=== PATIENT | female | born 1975 | race African-American/Black ===

== ENCOUNTER 2019-05-12 11:25 | Emergency (ER) | payer SELFPAY ==
[~2019-05-12] VITALS: Ht 172.7 cm; Wt 117.9 kg
[2019-05-12 11:41] VITALS: BP 136/104
[2019-05-12] MEDS ORDERED: NAPROXEN 500 MG TABLET PO STA (11:42)
[2019-05-12] MEDS ORDERED: LIDOCAINE 1%/EPI 1:100,000 20 ML VIAL. SQ ONE (11:45)
[2019-05-12] MEDS ORDERED: CLIN150C14 PO (12:13)
[2019-05-12] MEDS ORDERED: HYDR-2761 PO (12:13)
--- NOTE | 2019-05-12 12:13 | PHYS DOC ---
Past Medical History Past Medical History: No Pertinent History Past Surgical History: Other Additional Past Surgical Histo: R arm surgery d/t "boils" Alcohol Use: Occasionally Drug Use: Marijuana Adult General Chief Complaint Chief Complaint: ABSCESS HPI HPI Patient is a 43 year old AA female who presents to the emergency department with complaints of right upper inner arm, redness, warmth, and abscess for the last 5 days. Patient states the symptoms gradually gotten worse. She denies any drainage from the site. Patient denies any numbness, tingling, or weakness of the affected extremity. She also denies any fever, cough, shortness of breath, abdominal pain, nausea, vomiting, diarrhea, sore throat, runny nose, or nasal congestion. Currently the patient rates her pain a 10 out of 10 on the pain scale she denies any alleviating factors. The pain increases of the area is touched or she moves her upper arm. All other ROS is neg unless otherwise noted in HPI. Review of Systems Review of Systems See Above Current Medications Current Medications Current Medications Medications (Trade) Dose Ordered Sig/Afsaneh Start Time Stop Time Status Last Admin Dose Admin Lidocaine/ Epinephrine (LIDOCAINE 1%-EPI 1:100,000 Multi-Dose) 20 ml 1X ONCE 05/12/19 11:45 05/12/19 11:46 DC 05/12/19 11:59 20 ML Naproxen (Naprosyn) 500 mg 1X STAT 05/12/19 11:42 05/12/19 11:43 DC 05/12/19 11:59 500 MG Allergies Allergies Allergies Coded Allergies Type Severity Reaction Last Updated Verified No Known Drug Allergies 09/21/13 No Physical Exam Physical Exam See Above Constitutional: Well developed, well nourished, no acute distress, non-toxic appearance, obese. [] HENT: Normocephalic, atraumatic, bilateral external ears normal, oropharynx moist, no oral exudates, nose normal. [] Eyes: PERRLA, EOMI, conjunctiva normal, no discharge. [] Neck: Normal range of motion, no stridor. [] Lungs & Thorax: Respirations even and unlabored, no retractions, no respiratory distress Skin: Warm, dry; indurated, erythematous, tender area with stroll consistent with abscess noted to medial right bicep Back: No tenderness Extremities: No cyanosis, no clubbing, ROM intact Neurologic: Alert and oriented X 3, normal motor function, normal sensory function, no focal deficits noted. [] Psychologic: Affect normal, judgement normal, mood normal. [] Current Patient Data Vital Signs Vital Signs Date Time Temp Pulse Resp B/P (MAP) Pulse Ox O2 Delivery O2 Flow Rate FiO2 05/12/19 11:41 99.0 89 20 136/104 (115) 100 Room Air 99.0 EKG EKG [] Course & Med Decision Making Course & Med Decision Making Pertinent Labs and Imaging studies reviewed. (See chart for details) dx: Cutaneous abscess with surrounding cellulitis of right upper arm Prescription written for clindamycin and hydrocodone 5/325 mg #4. The abscess was incised and drained as documented under procedures. Patient was instructed to return to the emergency room in 2 days to have the site rechecked and the packing removed. Fill the prescriptions and use them as directed. Patient verbalized an understanding of home care, medications, follow-up, and return to ED instructions and was in agreement with the plan of care. [] Dragon Disclaimer Dragon Disclaimer This electronic medical record was generated, in whole or in part, using a voice recognition dictation system. Departure Departure Impression: Primary Impression: Abscess of right upper extremity Disposition: 01 HOME, SELF-CARE Condition: STABLE Referrals: NO PCP (PCP) Patient Instructions: Abscess, Care After, Abscess, [id number] Additional Instructions: Fill the prescription(s) and use as directed. You may take ibuprofen as needed for pain. Leave the Dressing that was placed in the ER in place for the next 24 hours, then change the dressing twice daily and apply antibiotic ointment as needed. You may apply warm, moist packs to the area to help decrease discomfort. Follow up with your primary care doctor or return to the ER in 48 hours to have wound rechecked. Return to the ER sooner if your symptoms worsen or you develop a fever. Scripts Hydrocodone Bit/Acetaminophen (HYDROCODONE-APAP 5-325 ) 1 Tab Tablet 1 TAB PO PRN Q6HRS PRN for PAIN for 1 Day, #4 TAB 0 Refills Prov: DEBBIE WRAY APRN 05/12/19 Clindamycin Hcl (CLINDAMYCIN HCL) 150 Mg Capsule 450 MG PO TID for 7 Days, #63 CAP 0 Refills Prov: DEBBIE WRAY OFFSET PRESS OPERATOR HELPER 05/12/19 Incision and Drainage Incision and Drainage : Site: right upper arm Blade Size: 11 I & D Procedure: gauze wick placed (1/2" iodoform gauze) Progress The affected site was cleansed with alcohol, 1% lidocaine with epi was injected and an 11 blade scalped was used to incise over the apex of the abscess. A moderate amount of bloody pus was expressed, the site was then explored with good forceps and then packed with iodoform gauze. Minimal blood loss. Pt tolerated procedure well. No complications. DEBBIE WRAY OFFSET PRESS OPERATOR HELPER May 12, 2019 12:13
== END 2019-05-12 12:37 | disposition home or self-care (01) ==
LOC: ER 11:25
DX: L02.413 Cutaneous abscess of right upper limb (principal)
CPT/HCPCS: 10060; 99283; J3490

== ENCOUNTER 2019-05-14 09:02 | Emergency (ER) | payer SELFPAY ==
[~2019-05-14] VITALS: Ht 172.7 cm; Wt 104.3 kg
[~2019-05-14 09:02] MED LIST: CLIN150C14 PO; HYDR-2761 PO
[2019-05-14 09:16] VITALS: BP 175/102
--- NOTE | 2019-05-14 09:32 | PHYS DOC ---
Past Medical History Past Medical History: No Pertinent History Past Surgical History: Other Additional Past Surgical Histo: R arm surgery d/t "boils" Alcohol Use: Occasionally Drug Use: Marijuana Adult General Chief Complaint Chief Complaint: WOUND RECHECK/SUTURE REMOVAL [facility] HPI Patient is a 43 year old AA female, accompanied by her friend, who presents to the ER for wound recheck. Pt was here 2 days ago and had an abscess of her right upper arm drained. She is here for packing removal. Pt states she has been taking the medication as prescribed. She denies any fever. Pt states the site feels better, however, remains tender to touch. She currently denies any pain, numbness, or tingling of the area. All other ROS is neg unless otherwise noted in HPI. Review of Systems Review of Systems See Above Allergies Allergies Allergies Coded Allergies Type Severity Reaction Last Updated Verified No Known Drug Allergies 09/21/13 No Physical Exam Physical Exam See Above Constitutional: Well developed, well nourished, no acute distress, non-toxic a ppearance, obese. [] HENT: Normocephalic, atraumatic, bilateral external ears normal, nose normal. [] Eyes: PERRLA, EOMI, conjunctiva normal, no discharge. [] Neck: Normal range of motion, no stridor. [] Cardiovascular:Heart rate regular rhythm Lungs & Thorax: Respirations even and unlabored, no retractions, no respiratory distress Skin: Warm, dry; R upper arm wound packing removed with no current drainage to the site, the surrounding tissue is no longer erythremic but remains indurated, wound is improved Extremities: No cyanosis, no clubbing, ROM intact, no edema. [] Neurologic: Alert and oriented X 3, no focal deficits noted. [] Psychologic: Affect normal, judgement normal, mood normal. [] Current Patient Data Vital Signs Vital Signs Date Time Temp Pulse Resp B/P (MAP) Pulse Ox O2 Delivery O2 Flow Rate FiO2 05/14/19 09:16 99.3 77 17 175/102 (126) 100 Room Air 99.3 EKG EKG [] Radiology/Procedures Radiology/Procedures [] Course & Med Decision Making Course & Med Decision Making Pertinent Labs and Imaging studies reviewed. (See chart for details) [] Dragon Disclaimer Dragon Disclaimer This electronic medical record was generated, in whole or in part, using a voice recognition dictation system. Departure Departure Impression: Primary Impression: Encounter for wound re-check Additional Impressions: Encounter for abscess packing removal Hypertension Disposition: 01 HOME, SELF-CARE Condition: STABLE Referrals: NO PCP (PCP) Patient Instructions: Abscess, Care After, Hypertension, [id number] Additional Instructions: Continue taking the medication(s) as prescribed and continue application of warm moist packs every 2-3 hours and as needed for comfort. Return to the ER if symptoms worsen or you develop a fever. Monitor your blood pressure regularly, Follow up with a primary care doctor using the clinic sheet provided in the ER. I suspect that you will need to be placed on blood pressure medication. Today your blood pressure was 174/92. Problem Qualifiers Additional Impressions: Hypertension Hypertension type: unspecified Qualified Codes: I10 - Essential (primary) hypertension DEBBIE WRAY APRN May 14, 2019 09:32
== END 2019-05-14 09:48 | disposition home or self-care (01) ==
LOC: ER 09:02
DX: Z48.00 Encounter for change or removal of nonsurgical wound dressing (principal); I10 Essential (primary) hypertension
CPT/HCPCS: 99281